=== PATIENT | male | born 1970 | race Caucasian/White ===

== ENCOUNTER 2020-02-26 13:48 | Inpatient (IN) ==
[2020-02-26 15:21] LABS: Basophils % 0.3 % (0.0-0.8); Eosinophils # 0.1 10*3/uL (0.0-0.87); Eosinophils % 0.6 % (0.00-10.9); Hematocrit 35.3 VOL% (42.0-52.0); Hemoglobin 12.5 GM/DL (14.0-18.0); Immature Granulocytes % 5.2 %; Immature Granulocytes Absolute 0.56 #; Lymphocytes # 0.9 10*3/uL (1.4-4.0); Lymphocytes % 8.7 % (21.2-54.2); Mean Corpuscular HGB Conc 35.4 GM/DL (32-36); Mean Corpuscular Volume 84.9 FL (87-102); Mean Platelet Volume 8.9 FL (9.6-12.0); Monocytes % 9.3 % (1.7-12.7); NRBC # 0.02 10*3/uL; Neutrophils % 75.9 % (38.7-73.9); Platelet Count 417 T/CUMM (130-400); Red Blood Count 4.16 MC/CUMM (3.8-5.5); Red Cell Distribution Width 12.4 % (9.3-17.3); White Blood Count 10.8 T/CUMM (4-12)
[2020-02-26 15:40] LABS: INR 1.1; PT Patient Result 11.4 SECS (9.8-11.9)
[2020-02-26 16:08] LABS: Atypical Lymphocytes Few; Lymphocytes 15 % (20-55); Metamyelocytes 1 %; Nucleated Red Blood Cells 1 (0-5); Segmented Neutrophils 78 % (50-85); Total Cells Counted 100
[2020-02-26 16:09] LABS: Albumin 2.4 G/DL (3.4-5.0); Bilirubin,Total 2.1 MG/DL (0.2-1.0); Calcium 8.4 MG/DL (8.5-10.1); Ferritin 709.4 ng/ml (26-388); Microcytosis Slight; Osmolality,Calculated 267.4 MOS/KG (273-304); Reactive Lymphocytes 1+; Total Protein 7.1 G/DL (6.4-8.3)
[2020-02-26 16:10] LABS: Platelet Estimate Increased
[2020-02-26] MEDS ORDERED: ENOXAPARIN 80 MG/0.8 ML SYRINGE SUBCUT STA (16:17)
[2020-02-26] MEDS ORDERED: LEVOFLOXACIN INJ 750 MG in PREMIX 1 EACH IV STA (16:37)
[2020-02-26] MEDS ORDERED: DEXAMETHASONE 4 MG/1 ML VIAL IV STA (16:37)
[2020-02-26] MEDS ORDERED: DEXTROSE 50% 25 GM/50 ML VIAL IV PRN (17:05)
[2020-02-26] MEDS ORDERED: ACETAMINOPHEN 325 MG TABLET PO PRN (17:05)
[2020-02-26] MEDS ORDERED: ONDANSETRON 4 MG/2 ML VIAL IV PRN (17:05)
[2020-02-26] MEDS ORDERED: GLUCAGON 1 MG VIAL IM PRN (17:05)
[2020-02-26] MEDS ORDERED: POTASSIUM CHLORIDE 20 MEQ TABLET PO STA (17:23)
[2020-02-26] MEDS ORDERED: ENOXAPARIN 40 MG/0.4 ML SYRINGE SUBCUT SCH (17:30)
[2020-02-26] MEDS ORDERED: amLODIPine 10 MG TABLET PO SCH (19:00)
[2020-02-27 00:27] LABS: Calcium 8.2 MG/DL (8.5-10.1); Osmolality,Calculated 271.2 MOS/KG (273-304)
[2020-02-27 06:04] LABS: Basophils % 0.3 % (0.0-0.8); Hematocrit 34.4 VOL% (42.0-52.0); Hemoglobin 11.8 GM/DL (14.0-18.0); Immature Granulocytes % 4.7 %; Immature Granulocytes Absolute 0.34 #; Lymphocytes # 0.7 10*3/uL (1.4-4.0); Lymphocytes % 9.3 % (21.2-54.2); Mean Corpuscular HGB Conc 34.3 GM/DL (32-36); Mean Corpuscular Volume 85.1 FL (87-102); Mean Platelet Volume 9.2 FL (9.6-12.0); Monocytes % 7.5 % (1.7-12.7); Neutrophils % 78.2 % (38.7-73.9); Platelet Count 415 T/CUMM (130-400); Red Blood Count 4.04 MC/CUMM (3.8-5.5); Red Cell Distribution Width 12.5 % (9.3-17.3); White Blood Count 7.2 T/CUMM (4-12)
[2020-02-27 06:25] LABS: Ferritin 709.8 ng/ml (26-388)
[2020-02-27 06:27] LABS: Bilirubin,Total 1.8 MG/DL (0.2-1.0); Calcium 8.3 MG/DL (8.5-10.1); Total Protein 6.4 G/DL (6.4-8.3)
[2020-02-27 06:28] LABS: Bilirubin,Direct 0.42 MG/DL (0.0-0.20); Bilirubin,Indirect 1.9 MG/DL (0.0-1.0); Bilirubin,Total 2.3 MG/DL (0.2-1.0); Total Protein 6.6 G/DL (6.4-8.3)
[2020-02-27] MEDS ORDERED: FUROSEMIDE 40 MG/4 ML VIAL IV ONE (07:40)
[2020-02-27 08:39] LABS: ABG Base Excess 6.7 MMOL/L (-2.5-2.5); ABG HCO3 30.4 MMOL/L (20-26); ABG Oxygen Saturation 94.2 % (95-100); ABG PH 7.516 (7.35-7.45); ABG PO2 70.3 MM HG (80-95); ABG TCO2 26.2 MMOL/L (23-27)
[2020-02-27] MEDS ORDERED: MAGNESIUM SULF RIDER 4 GM in PREMIX 1 EACH IV PRN (09:53)
[2020-02-27] MEDS ORDERED: MAGNESIUM SULF RIDER 2 GM in PREMIX 1 EACH IV PRN (09:53)
[2020-02-27] MEDS: ENOXAPARIN 100 MG/ML SYRINGE SUBCUT SCH ×2 (10:23→20:51)
[2020-02-27] MEDS: DEXAMETHASONE 10 MG/1 ML VIAL IV SCH (10:24)
[2020-02-27] MEDS: ZINC SULFATE 220 MG CAPSULE PO SCH (10:24)
[2020-02-27] MEDS: ASCORBIC ACID 500 MG TABLET PO SCH (10:24)
[2020-02-27] MEDS ORDERED: LEVOFLOXACIN INJ 750 MG in PREMIX 1 EACH IV SCH (17:30)
[2020-02-27] MEDS: POTASSIUM CHLORIDE RIDER 10 MEQ in PREMIX 1 EACH IV PRN ×5 (17:42→23:46)
[2020-02-27] MEDS: amLODIPine 10 MG TABLET PO SCH (20:51)
[2020-02-28 03:32] LABS: ABG Base Excess 8.2 MMOL/L (-2.5-2.5); ABG Oxygen Saturation 99.2 % (95-100); ABG PCO2 37.1 MM HG (35-48); ABG PH 7.534 (7.35-7.45); ABG TCO2 27.8 MMOL/L (23-27)
[2020-02-28 06:42] LABS: Basophils % 0.2 % (0.0-0.8); Eosinophils % 0.3 % (0.00-10.9); Hematocrit 34.2 VOL% (42.0-52.0); Hemoglobin 11.5 GM/DL (14.0-18.0); Immature Granulocytes % 2.8 %; Immature Granulocytes Absolute 0.33 #; Lymphocytes # 1.3 10*3/uL (1.4-4.0); Lymphocytes % 11.3 % (21.2-54.2); Mean Corpuscular HGB Conc 33.6 GM/DL (32-36); Mean Corpuscular Volume 88.8 FL (87-102); Mean Platelet Volume 9.3 FL (9.6-12.0); Monocytes % 8.3 % (1.7-12.7); Neutrophils % 77.1 % (38.7-73.9); Platelet Count 497 T/CUMM (130-400); Red Blood Count 3.85 MC/CUMM (3.8-5.5); Red Cell Distribution Width 12.5 % (9.3-17.3); White Blood Count 11.6 T/CUMM (4-12)
[2020-02-28] MEDS ORDERED: FUROSEMIDE 40 MG/4 ML VIAL IV ONE (06:59)
[2020-02-28 07:04] LABS: Albumin 1.9 G/DL (3.4-5.0); Bilirubin,Total 1.3 MG/DL (0.2-1.0); Calcium 8.3 MG/DL (8.5-10.1); Osmolality,Calculated 281.5 MOS/KG (273-304); Total Protein 6.1 G/DL (6.4-8.3)
[2020-02-28 07:12] LABS: Ferritin 731.7 ng/ml (26-388)
[2020-02-28] MEDS ORDERED: POTASSIUM CHLORIDE 20 MEQ TABLET PO ONE (08:31)
[2020-02-28] MEDS: ENOXAPARIN 100 MG/ML SYRINGE SUBCUT SCH ×2 (08:50→21:55)
[2020-02-28] MEDS: ASCORBIC ACID 500 MG TABLET PO SCH (08:51)
[2020-02-28] MEDS: ZINC SULFATE 220 MG CAPSULE PO SCH (08:51)
[2020-02-28] MEDS: DEXAMETHASONE 10 MG/1 ML VIAL IV SCH (08:53)
[2020-02-28] MEDS: POTASSIUM CHLORIDE RIDER 10 MEQ in PREMIX 1 EACH IV SCH ×3 (09:11→11:14)
[2020-02-28] MEDS: amLODIPine 10 MG TABLET PO SCH (21:55)
[2020-02-29 05:11] LABS: ABG Base Excess 5.7 MMOL/L (-2.5-2.5); ABG HCO3 28.5 MMOL/L (20-26); ABG Oxygen Saturation 98.6 % (95-100); ABG PCO2 35.3 MM HG (35-48); ABG PH 7.525 (7.35-7.45); ABG PO2 153.8 MM HG (80-95); ABG TCO2 29.6 MMOL/L (23-27)
[2020-02-29 06:03] LABS: Basophils % 0.2 % (0.0-0.8); Eosinophils # 0.1 10*3/uL (0.0-0.87); Eosinophils % 0.9 % (0.00-10.9); Hematocrit 35.4 VOL% (42.0-52.0); Hemoglobin 11.5 GM/DL (14.0-18.0); Immature Granulocytes % 2.4 %; Immature Granulocytes Absolute 0.25 #; Mean Corpuscular HGB Conc 32.5 GM/DL (32-36); Mean Corpuscular Volume 90.1 FL (87-102); Mean Platelet Volume 9.1 FL (9.6-12.0); Monocytes % 8.9 % (1.7-12.7); Neutrophils % 68.6 % (38.7-73.9); Platelet Count 527 T/CUMM (130-400); Red Blood Count 3.93 MC/CUMM (3.8-5.5); Red Cell Distribution Width 12.4 % (9.3-17.3); White Blood Count 10.4 T/CUMM (4-12)
[2020-02-29 06:33] LABS: Ferritin 699.1 ng/ml (26-388)
[2020-02-29 06:35] LABS: Albumin 2.1 G/DL (3.4-5.0); Calcium 7.6 MG/DL (8.5-10.1); Osmolality,Calculated 282.4 MOS/KG (273-304); Total Protein 5.3 G/DL (6.4-8.3)
[2020-02-29] MEDS: ENOXAPARIN 100 MG/ML SYRINGE SUBCUT SCH ×2 (09:37→20:27)
[2020-02-29] MEDS: FUROSEMIDE 40 MG/4 ML VIAL IV SCH (09:38)
[2020-02-29] MEDS: ASCORBIC ACID 500 MG TABLET PO SCH (09:38)
[2020-02-29] MEDS: ZINC SULFATE 220 MG CAPSULE PO SCH (09:38)
[2020-02-29] MEDS: DEXAMETHASONE 10 MG/1 ML VIAL IV SCH (09:38)
[2020-02-29] MEDS: amLODIPine 10 MG TABLET PO SCH (20:27)
[2020-03-01 05:04] LABS: Allen Test Positive; Pt O2 Delivery Device Other
[2020-03-01 05:05] LABS: ABG HCO3 30.7 MMOL/L (20-26); ABG Oxygen Saturation 95.8 % (95-100); ABG PCO2 37.1 MM HG (35-48); ABG PH 7.519 (7.35-7.45); ABG PO2 74.3 MM HG (80-95); ABG TCO2 27.1 MMOL/L (23-27)
[2020-03-01 05:45] LABS: Basophils % 0.2 % (0.0-0.8); Eosinophils # 0.1 10*3/uL (0.0-0.87); Eosinophils % 1.4 % (0.00-10.9); Hematocrit 34.7 VOL% (42.0-52.0); Hemoglobin 11.2 GM/DL (14.0-18.0); Immature Granulocytes Absolute 0.28 #; Lymphocytes # 2.4 10*3/uL (1.4-4.0); Lymphocytes % 25.4 % (21.2-54.2); Mean Corpuscular HGB Conc 32.3 GM/DL (32-36); Mean Corpuscular Volume 91.1 FL (87-102); Mean Platelet Volume 8.9 FL (9.6-12.0); Monocytes % 7.7 % (1.7-12.7); Neutrophils % 62.3 % (38.7-73.9); Platelet Count 533 T/CUMM (130-400); Red Blood Count 3.81 MC/CUMM (3.8-5.5); Red Cell Distribution Width 12.4 % (9.3-17.3); White Blood Count 9.4 T/CUMM (4-12)
[2020-03-01 06:20] LABS: Albumin 2.3 G/DL (3.4-5.0); Bilirubin,Total 0.9 MG/DL (0.2-1.0); Calcium 7.7 MG/DL (8.5-10.1); Osmolality,Calculated 278.5 MOS/KG (273-304); Total Protein 5.5 G/DL (6.4-8.3)
[2020-03-01] MEDS: FUROSEMIDE 40 MG/4 ML VIAL IV SCH (08:26)
[2020-03-01] MEDS: ZINC SULFATE 220 MG CAPSULE PO SCH (08:26)
[2020-03-01] MEDS: ASCORBIC ACID 500 MG TABLET PO SCH (08:26)
[2020-03-01] MEDS: ENOXAPARIN 100 MG/ML SYRINGE SUBCUT SCH ×2 (08:26→21:08)
[2020-03-01] MEDS: DEXAMETHASONE 10 MG/1 ML VIAL IV SCH (08:27)
[2020-03-01] MEDS: amLODIPine 10 MG TABLET PO SCH (21:08)
[2020-03-02 04:33] LABS: ABG Base Excess 4.7 MMOL/L (-2.5-2.5); ABG HCO3 28.6 MMOL/L (20-26); ABG Oxygen Saturation 98.9 % (95-100); ABG PCO2 36.6 MM HG (35-48); ABG PH 7.492 (7.35-7.45); ABG TCO2 24.6 MMOL/L (23-27); Allen Test Positive; Pt O2 Delivery Device Other
[2020-03-02 05:27] LABS: Basophils % 0.3 % (0.0-0.8); Eosinophils # 0.1 10*3/uL (0.0-0.87); Eosinophils % 1.1 % (0.00-10.9); Hematocrit 33.3 VOL% (42.0-52.0); Hemoglobin 11.4 GM/DL (14.0-18.0); Immature Granulocytes % 2.6 %; Immature Granulocytes Absolute 0.27 #; Lymphocytes % 19.4 % (21.2-54.2); Mean Corpuscular HGB Conc 34.2 GM/DL (32-36); Mean Corpuscular Volume 88.6 FL (87-102); Monocytes % 7.9 % (1.7-12.7); Neutrophils % 68.7 % (38.7-73.9); Platelet Count 457 T/CUMM (130-400); Red Blood Count 3.76 MC/CUMM (3.8-5.5); Red Cell Distribution Width 12.4 % (9.3-17.3); White Blood Count 10.4 T/CUMM (4-12)
[2020-03-02 05:49] LABS: Albumin 2.4 G/DL (3.4-5.0); Bilirubin,Total 0.7 MG/DL (0.2-1.0); Calcium 7.9 MG/DL (8.5-10.1); Total Protein 5.4 G/DL (6.4-8.3)
[2020-03-02 05:50] LABS: Ferritin 701.1 ng/ml (26-388)
[2020-03-02] MEDS: DEXAMETHASONE 10 MG/1 ML VIAL IV SCH (09:13)
[2020-03-02] MEDS: ZINC SULFATE 220 MG CAPSULE PO SCH (09:13)
[2020-03-02] MEDS: ASCORBIC ACID 500 MG TABLET PO SCH (09:13)
[2020-03-02] MEDS: ENOXAPARIN 100 MG/ML SYRINGE SUBCUT SCH ×2 (09:14→21:26)
[2020-03-02] MEDS: FUROSEMIDE 40 MG/4 ML VIAL IV SCH (10:11)
[2020-03-02 15:09] LABS: Basophils % 0.2 % (0.0-0.8); Eosinophils % 0.1 % (0.00-10.9); Hematocrit 40.7 VOL% (42.0-52.0); Hemoglobin 12.8 GM/DL (14.0-18.0); Immature Granulocytes % 2.8 %; Immature Granulocytes Absolute 0.34 #; Lymphocytes # 0.7 10*3/uL (1.4-4.0); Lymphocytes % 5.5 % (21.2-54.2); Mean Corpuscular HGB Conc 31.4 GM/DL (32-36); Mean Corpuscular Volume 92.5 FL (87-102); Mean Platelet Volume 8.9 FL (9.6-12.0); Monocytes % 2.4 % (1.7-12.7); Platelet Count 569 T/CUMM (130-400); Red Cell Distribution Width 12.5 % (9.3-17.3); White Blood Count 12.1 T/CUMM (4-12)
[2020-03-02] MEDS: amLODIPine 10 MG TABLET PO SCH (21:26)
[2020-03-03 04:38] LABS: ABG Base Excess 4.5 MMOL/L (-2.5-2.5); ABG HCO3 27.2 MMOL/L (20-26); ABG Oxygen Saturation 95.7 % (95-100); ABG PH 7.521 (7.35-7.45); ABG PO2 77.2 MM HG (80-95); ABG TCO2 28.2 MMOL/L (23-27)
[2020-03-03 05:42] LABS: Basophils % 0.2 % (0.0-0.8); Eosinophils # 0.1 10*3/uL (0.0-0.87); Eosinophils % 0.6 % (0.00-10.9); Hematocrit 35.4 VOL% (42.0-52.0); Hemoglobin 11.4 GM/DL (14.0-18.0); Immature Granulocytes % 2.4 %; Immature Granulocytes Absolute 0.28 #; Lymphocytes # 2.1 10*3/uL (1.4-4.0); Lymphocytes % 17.5 % (21.2-54.2); Mean Corpuscular HGB Conc 32.2 GM/DL (32-36); Mean Corpuscular Volume 92.4 FL (87-102); Monocytes % 7.2 % (1.7-12.7); Neutrophils % 72.1 % (38.7-73.9); Platelet Count 496 T/CUMM (130-400); Red Blood Count 3.83 MC/CUMM (3.8-5.5); Red Cell Distribution Width 12.4 % (9.3-17.3); White Blood Count 11.7 T/CUMM (4-12)
[2020-03-03 05:58] LABS: Albumin 2.1 G/DL (3.4-5.0); Bilirubin,Total 0.7 MG/DL (0.2-1.0); Calcium 8.2 MG/DL (8.5-10.1); Osmolality,Calculated 280.4 MOS/KG (273-304); Total Protein 5.8 G/DL (6.4-8.3)
[2020-03-03] MEDS ORDERED: amLODIPine 5 MG TABLET PO SCH (07:37)
[2020-03-03] MEDS ORDERED: FAMOTIDINE 20 MG TABLET PO SCH (09:00)
[2020-03-03] MEDS ORDERED: CHOLECALCIFEROL 1,000 UNIT TABLET PO SCH (09:00)
[2020-03-03] MEDS: ASCORBIC ACID 500 MG TABLET PO SCH (09:47)
[2020-03-03] MEDS: POTASSIUM CHLORIDE 20 MEQ TABLET PO PRN ×2 (09:47→11:19)
[2020-03-03] MEDS: ZINC SULFATE 220 MG CAPSULE PO SCH (09:47)
[2020-03-03] MEDS: DEXAMETHASONE 10 MG/1 ML VIAL IV SCH (09:48)
[2020-03-03] MEDS: ENOXAPARIN 100 MG/ML SYRINGE SUBCUT SCH (09:49)
[2020-03-03 11:20] VITALS: BP 100/57
== END 2020-03-03 12:25 | disposition home or self-care (01) | DRG 177 ==
LOC: N.ED 13:48 → N.EDINP 17:05 → N.2E 19:08
PROVIDERS: ADMIT Internal Medicine; ATTEND Internal Medicine